=== PATIENT | female | born 1960 | race Caucasian/White ===

== ENCOUNTER → 2017-04-02 | Outpatient (CLI) | payer OTHER ==
--- NOTE | 2017-04-04 09:47 | MM ---
Reason for exam: screening (asymptomatic). Last mammogram was performed 1 year and 6 months ago. History: Patient is postmenopausal. Family history of breast cancer in maternal grandmother at age 40. Benign US right guided VAD of the right breast, August 15, 2008. Benign stereotactic core biopsy of the left breast, May 30, 2003. Benign ultrasound-guided core biopsy of the right breast, November 13, 1999. Physical Findings: A clinical breast exam by your physician is recommended on an annual basis and results should be correlated with mammographic findings. MG 3D Screening Mammo W/Cad Bilateral CC and MLO view(s) were taken. Prior study comparison: September 22, 2015, bilateral MG 3d screening mammo w/cad. September 19, 2014, bilateral MG screening mammo w CAD. There are scattered fibroglandular densities. Previous mammotome biopsy in the right and left breast. There is chronic nodularity bilaterally. No significant changes when compared with prior studies. ASSESSMENT: Negative, BI-RAD 1 RECOMMENDATION: Routine screening mammogram of both breasts in 1 year.
== END | disposition home or self-care (01) ==
LOC: RADMAMWWP 07:47
PROVIDERS: ATTEND Family Medicine
DX: Z12.31 Encounter for screening mammogram for malignant neoplasm of breast (principal)
CPT/HCPCS: 77063; G0202

== ENCOUNTER → 2019-01-08 | Outpatient (CLI) | payer OTHER ==
--- NOTE | 2019-01-12 16:20 | MM ---
Reason for exam: screening (asymptomatic). Last mammogram was performed 1 year and 9 months ago. History: Patient is postmenopausal. Family history of breast cancer in maternal grandmother at age 40. Benign US right guided VAD of the right breast, August 15, 2008. Benign stereotactic core biopsy of the left breast, May 30, 2003. Benign ultrasound-guided core biopsy of the right breast, November 13, 1999. MG 3D Screening Mammo W/Cad Bilateral CC and MLO view(s) were taken. Prior study comparison: April 02, 2017, bilateral MG 3d screening mammo w/cad. September 22, 2015, bilateral MG 3d screening mammo w/cad. There are scattered fibroglandular densities. Previous mammotome biopsy bilaterally. Bilateral chronic nodularity. No significant new finding when compared with prior studies. ASSESSMENT: Negative, BI-RAD 1 RECOMMENDATION: Routine screening mammogram of both breasts in 1 year.
== END | disposition home or self-care (01) ==
LOC: RADMAMWWP 06:48
PROVIDERS: ATTEND Family Medicine
DX: Z12.31 Encounter for screening mammogram for malignant neoplasm of breast (principal)
CPT/HCPCS: 77063; 77067

== ENCOUNTER → 2020-10-19 | Outpatient (CLI) | payer OTHER ==
--- NOTE | 2020-10-20 11:40 | MM ---
Reason for exam: screening (asymptomatic). Last mammogram was performed 1 year and 9 months ago. History: Patient is postmenopausal. Family history of breast cancer in maternal grandmother at age 40. Benign US right guided VAD of the right breast, August 15, 2008. Benign stereotactic core biopsy of the left breast, May 30, 2003. Benign ultrasound-guided core biopsy of the right breast, November 13, 1999. Physical Findings: A clinical breast exam by your physician is recommended on an annual basis and results should be correlated with mammographic findings. MG 3D Screening Mammo W/Cad Bilateral CC and MLO view(s) were taken. Prior study comparison: January 08, 2019, bilateral MG 3d screening mammo w/cad. April 02, 2017, bilateral MG 3d screening mammo w/cad. The breast tissue is heterogeneously dense. This may lower the sensitivity of mammography. There are benign appearing round dystrophic calcifications bilaterally. Previous mammotome biopsy in the right and left breast. There is chronic nodularity bilaterally, left breast at clip. There is no new dominant lesion. ASSESSMENT: Benign, BI-RAD 2 RECOMMENDATION: Routine screening mammogram of both breasts in 1 year.
== END | disposition home or self-care (01) ==
LOC: RADMAMWWP 08:46
PROVIDERS: ATTEND Family Medicine
DX: Z12.31 Encounter for screening mammogram for malignant neoplasm of breast (principal); Z78.0 Asymptomatic menopausal state; Z80.3 Family history of malignant neoplasm of breast
CPT/HCPCS: 77063; 77067

== ENCOUNTER → 2021-12-03 | Outpatient (CLI) | payer BC ==
--- NOTE | 2021-12-03 17:39 | BD ---
EXAMINATION TYPE: Axial Bone Density DATE OF EXAM: 12/03/2021 COMPARISON: 07/23/2008 CLINICAL HISTORY: 61 years year old Female. ICD-10 CODE: Z13.820 Osteoporosis screening Height: 63.2 IN Weight: 170 LBS RISK FACTORS HISTORY OF: Family History of Osteoporosis: YES GRANDMOTHER Active: YES Diet low in dairy products/other sources of calcium: YES Postmenopausal woman: AGE 51 MEDICATIONS: Additional Medications: BLOOD PRESSURE MEDS EXAM MEASUREMENTS: Bone mineral densitometry was performed using the [employer] System. Bone mineral density as measured about the Lumbar spine is: ----- L1-L4(G/cm2): 1.157 T Score Values are as follows: ----- L1: -1.1 ----- L2: 0.0 ----- L3: -0.1 ----- L4: 0.2 ----- L1-L4: -0.2 Bone mineral density has: Decreased -15.4% since study of: 07/23/2008 Bone mineral density about the R hip (g/cm2): 1.041 Bone mineral density about the L hip (g/cm2): 0.900 T Score values are as follows: -----R Neck: 0.0 -----L Neck: -1.0 -----R Total: 0.0 -----L Total: -0.9 Bone mineral density has: Decreased -21.6% since study of: 07/23/2008 FRAX%s: The graph provided illustrates a chance for a major osteoporotic fx and a chance for the hips probability for fx in 10 years time. IMPRESSION: Normal (Values between +1 and -1 indicate normal bone mass). Consider repeating this study in 5 year s or sooner if there is some new clinical indication. NOTE: T-SCORE=SD OF THE YOUNG ADULT MEAN.
--- NOTE | 2021-12-04 13:41 | MM ---
Reason for Exam: Screening (asymptomatic). Last mammogram was performed 1 year(s) and 1 month(s) ago. Patient History: Menarche at age 13. First Full-Term at age 27. Postmenopausal. 08/15/2008, Benign Core Biopsy on the right side. 05/30/2003, Benign Stereotactic Core Biopsy on the left side. 11/13/1999, Benign Ultrasound-Guided Core Biopsy on the right side. Maternal grandmother had breast cancer, age 40. Risk Values: Berna 5 year model risk: 2.4%. NCI Lifetime model risk: 11.9%. Prior Study Comparison: 04/02/2017 Bilateral Screening Mammogram, [facility]. 01/08/2019 Bilateral Screening Mammogram, [facility]. 10/19/2020 Bilateral Screening Mammogram, [facility]. Tissue Density: There are scattered fibroglandular densities. Findings: Analyzed By CAD. Benign-appearing coarse calcifications in the upper-outer right breast. A core markers within the right breast. 8 core markers within the medial left breast. No suspicious groups of microcalcifications, spiculated or lobular masses, architectural distortion or other secondary signs of malignancy are mammographically apparent. Overall Assessment: Benign, BI-RAD 2 Management: Screening Mammogram of both breasts in 1 year. A negative mammogram report should not preclude additional follow up of suspicious palpable abnormalities. Patient should continue monthly self breast exam. A clinical breast exam by your physician is recommended on an annual basis and results should be correlated with mammographic findings. Electronically signed and approved by: Rachid Dangelo D.O. Radiologis
== END | disposition home or self-care (01) ==
LOC: RADMAMWWP 14:35
PROVIDERS: ATTEND Family Medicine
DX: Z12.31 Encounter for screening mammogram for malignant neoplasm of breast (principal); M85.89 Other specified disorders of bone density and structure, multiple sites; Z78.0 Asymptomatic menopausal state; Z80.3 Family history of malignant neoplasm of breast
CPT/HCPCS: 77063; 77067; 77080

== ENCOUNTER → 2023-02-12 | Outpatient (CLI) | payer BC ==
--- NOTE | 2023-02-13 07:27 | MM ---
Reason for Exam: Screening (asymptomatic). Last mammogram was performed 1 year(s) and 2 month(s) ago. Patient History: Menarche at age 13. First Full-Term at age 27. Postmenopausal. 08/15/2008, Benign Core Biopsy on the right side. 05/30/2003, Benign Stereotactic Core Biopsy on the left side. 11/13/1999, Benign Ultrasound-Guided Core Biopsy on the right side. Maternal grandmother had breast cancer, age 40. Risk Values: Berna 5 year model risk: 2.5%. NCI Lifetime model risk: 11.6%. Prior Study Comparison: 01/08/2019 Bilateral Screening Mammogram, [facility]. 10/19/2020 Bilateral Screening Mammogram, [facility]. 12/03/2021 Bilateral MG 3D screening mammo w/cad, [facility]. Tissue Density: There are scattered fibroglandular densities. Findings: Analyzed By CAD. There is no suspicious group of microcalcifications or new suspicious mass in either breast. Benign calcifications within both breasts. Chronic nodularity within both breasts. Biopsy clips within both breasts. Overall Assessment: Benign, BI-RAD 2 Management: Screening Mammogram of both breasts in 1 year. A clinical breast exam by your physician is recommended on an annual basis and results should be correlated with mammographic findings. Note on Berna scores and lifetime risk: 1. A Berna score greater than 3% is considered moderate risk. If this is the case, consider specialist referral to assess eligibility for a risk reducing agent. If overall lifetime risk for the development of breast cancer is 20% or higher, the patient may qualify for future screening with alternating mammogram and breast MRI. Electronically signed and approved by: Jean Claude Mccoy D.O.
== END | disposition home or self-care (01) ==
LOC: RADMAMWWP 11:25
PROVIDERS: ATTEND Family Medicine
DX: Z12.31 Encounter for screening mammogram for malignant neoplasm of breast (principal); Z78.0 Asymptomatic menopausal state; Z80.3 Family history of malignant neoplasm of breast
CPT/HCPCS: 77063; 77067

== ENCOUNTER → 2024-04-21 | Outpatient (CLI) | payer BC ==
--- NOTE | 2024-04-26 13:38 | MM ---
Reason for Exam: Screening (asymptomatic). Last mammogram was performed 1 year(s) and 3 month(s) ago. Patient History: Menarche at age 13. First Full-Term at age 27. Postmenopausal. 08/15/2008, Benign Core Biopsy on the right side. 05/30/2003, Benign Stereotactic Core Biopsy on the left side. 11/13/1999, Benign Ultrasound-Guided Core Biopsy on the right side. Maternal grandmother had breast cancer, age 40. Risk Values: Berna 5 year model risk: 2.6%. NCI Lifetime model risk: 10.9%. Prior Study Comparison: 10/19/2020 Bilateral Screening Mammogram, [facility]. 12/03/2021 Bilateral MG 3D screening mammo w/cad, [facility]. 02/12/2023 Bilateral MG 3D screening mammo w/cad, [facility]. Tissue Density: The breasts are heterogeneously dense, which may obscure small masses. Findings: Analyzed By CAD. There is no suspicious group of microcalcifications or new suspicious mass in either breast. Benign-appearing calcifications. Surgical clip is stable. Stable chronic nodularity. Overall Assessment: Benign, BI-RAD 2 Management: Screening Mammogram of both breasts in 1 year. . Patient should continue monthly self-breast exams. A clinical breast exam by your physician is recommended on an annual basis. This exam should not preclude additional follow-up of suspicious palpable abnormalities. Note on Berna scores and lifetime risk: 1. A Berna score greater than 3% is considered moderate risk. If this is the case, consider specialist referral to assess eligibility for a risk reducing agent. 2. If overall lifetime risk for the development of breast cancer is 20% or higher, the patient may qualify for future screening with alternating mammogram and breast MRI. [facility], , 04/21/2024 7:51 AM. Electronically signed and approved by: Piter Wharton M.D. Radiologis
== END | disposition home or self-care (01) ==
LOC: RADMAMWWP 07:27
PROVIDERS: ATTEND Family Medicine
DX: Z12.31 Encounter for screening mammogram for malignant neoplasm of breast (principal); R92.333 Mammographic heterogeneous density, bilateral breasts; Z78.0 Asymptomatic menopausal state; Z80.3 Family history of malignant neoplasm of breast
CPT/HCPCS: 77063; 77067